=== PATIENT | female | born 1965 | race Caucasian/White ===

== ENCOUNTER 2020-12-28 23:14 | Inpatient (IN) ==
[2020-12-29] MEDS ORDERED: Heparin DRIP 25,000 UNITS BAG 25,000 UNITS/500 ML BAG IV SCH (00:30)
[2020-12-29] MEDS ORDERED: Heparin 5000 UNITS/ML 1 mL VIAL IV SCH (01:00)
[2020-12-29 01:30] LABS: EGFR African American 161.9 (>60); EGFR Non-African American 133.8 (>60); HDL Cholesterol 65.5 mg/dL
[2020-12-29 06:55] LABS: ABS Basophils 0.1 10^3/ul (0-0.2); ABS Eosinophils 0.1 10^3/ul (0-0.6); ABS Monocytes 0.5 10^3/ul (0-0.8); ABS Neutrophils 4.6 10^3/ul (1.5-7.7); Eosinophil % 0.8 %; Hematocrit 41 % (35-47); Hemoglobin 13.7 g/dL (12.0-16.0); Mean Corpuscular HGB Conc 34 g/dL (31-36); Mean Corpuscular Hemoglobin 30 pg (27-31); Mean Corpuscular Volume 88 fL (80-97); Mean Platelet Volume 8.5 fL (7.4-10.4); Platelet Count 241 10^3/uL (150-450); Red Blood Count 4.61 10^6 /uL (3.70-4.87); Red Cell Distribution Width 13 % (10-15); White Blood Count 7.2 10^3/uL (3.5-10.8)
[2020-12-29 07:24] LABS: ALT 16 U/L (7-52); AST 34 U/L (13-39); Albumin 4.1 g/dL (3.2-5.2); Albumin/Globulin Ratio 1.5 (1-3); Alkaline Phosphatase 75 U/L (34-104); Anion Gap 8 mmol/L (2-11); Blood Urea Nitrogen 14 mg/dL (6-24); CO2 Carbon Dioxide 26 mmol/L (22-32); Calcium 9.1 mg/dL (8.6-10.3); Chloride 107 mmol/L (101-111); EGFR African American 154.4 (>60); EGFR Non-African American 127.6 (>60); Globulin 2.8 g/dL (2-4); Glucose 99 mg/dL (70-100); Potassium 3.7 mmol/L (3.5-5.0); Sodium 141 mmol/L (135-145); Total Protein 6.9 g/dL (6.4-8.9)
[2020-12-29 07:28] LABS: Troponin I 6.85 ng/mL (<0.03)
[2020-12-29] MEDS ORDERED: fentaNYL 100 mcg/2 ml 50 MCG/ML VIAL ONE (10:31)
[2020-12-29] MEDS ORDERED: Midazolam 5 mg/5 ml VIAL 1 mg/ml 5 ml VIAL (5 mg) ONE (10:31)
[2020-12-29] MEDS ORDERED: Heparin 1,000 UNIT/ML 10 ml (10,000 UNITS) CATHLAB/DIALYSIS ONE (10:32)
[2020-12-29] MEDS ORDERED: VERAPAMIL 2.5 MG/ML 2 ML VIAL ** 5 mg/2 ml ONE (10:32)
[2020-12-29] MEDS ORDERED: Lidocaine 1% VIAL 10 MG/ML VIAL ONE (10:33)
[2020-12-29] MEDS ORDERED: nitroGLYCERIN DRIP 25,000 MCG/250 ML BTL ONE (10:33)
[2020-12-29] MEDS ORDERED: Iohexol 350 (CONTRAST) 200 ML MDV IV ONE ×2 (10:33→10:34)
[2020-12-29] MEDS ORDERED: Heparin 2 UNITS/ML 1000 mls 2,000 ML IV ONE (10:33)
[2020-12-29] MEDS ORDERED: NS 0.9% 500 ml BAG 500 ML IV SCH ×2 (11:00→13:00)
[2020-12-29 15:56] LABS: Troponin I 4.83 ng/mL (<0.03)
[2020-12-29 19:10] LABS: Troponin I 3.98 ng/mL (<0.03)
[2020-12-30 01:50] LABS: Troponin I 3.02 ng/mL (<0.03)
[2020-12-30 02:36] LABS: TSH Ultra Thyroid Stim Horm 1.43 mcIU/mL (0.34-5.60)
[2020-12-30] MEDS: Enoxaparin 60 MG/0.6 ML SYR SUBCUT SCH ×2 (10:05→20:04)
[2020-12-30 19:13] LABS: Troponin I 1.74 ng/mL (<0.03)
[2020-12-31] MEDS ORDERED: Perflutren Lipid Microsphere 3 ML VIAL ONE (09:07)
[2020-12-31] MEDS: Enoxaparin 60 MG/0.6 ML SYR SUBCUT SCH (09:51)
[2020-12-31 14:37] VITALS: BP 97/62
[2021-01-01 12:12] LABS: Plasma Free Metanephrine <0.20 nmol/L (<0.50); Plasma Free Normetanephrine 0.36 nmol/L (<0.90)
== END 2020-12-31 15:10 | disposition home or self-care (01) | DRG 192 ==
LOC: ED 23:14 → MEDTELE 12-29 00:09
PROVIDERS: ADMIT Internal Medicine Interventional Cardiology; ATTEND Internal Medicine